=== PATIENT | female | born 1970 | race Caucasian/White ===

== ENCOUNTER → 2018-08-24 | Outpatient (CLI) | payer OTHER | LOC: ULTRA 09:17 | DX: K76.0 Fatty (change of) liver, not elsewhere classified (principal); R14.0 Abdominal distension (gaseous) ==

== ENCOUNTER → 2021-01-14 | Outpatient (CLI) | payer OTHER | LOC: ULTRA 08:48 | PROVIDERS: ATTEND Nurse Practitioner | DX: N95.1 Menopausal and female climacteric states (principal); R14.0 Abdominal distension (gaseous) ==